=== PATIENT | male | born 1940 | race Caucasian/White ===

== ENCOUNTER 2017-02-01 14:07 | Outpatient (CLI) ==
[2015-03-24 19:46] VITALS: BMI 29.7
== END 2017-02-01 14:08 ==
LOC: AMBL 14:07
PROVIDERS: ATTEND Internal Medicine
DX: R06.9 Unspecified abnormalities of breathing (principal); R50.9 Fever, unspecified; R53.1 Weakness; R09.02 Hypoxemia; R03.1 Nonspecific low blood-pressure reading; R41.0 Disorientation, unspecified; Z99.81 Dependence on supplemental oxygen